=== PATIENT | male | born 1940 | race Caucasian/White ===

== ENCOUNTER 2018-03-07 04:00 | Inpatient (IN) ==
[2018-03-06 11:43] LABS: Basophils # 0.1 10*3/uL (0.0-0.2); Basophils % 0.8 % (0.0-0.8); Eosinophils # 0.3 10*3/uL (0.0-0.87); Eosinophils % 3.5 % (0.00-10.9); Hematocrit 43.9 VOL% (42.0-52.0); Immature Granulocytes % 0.4 %; Immature Granulocytes Absolute 0.03 #; Lymphocytes # 1.5 10*3/uL (1.4-4.0); Lymphocytes % 18.2 % (21.2-54.2); Mean Corpuscular HGB Conc 34.2 GM/DL (32-36); Mean Corpuscular Hemoglobin 31 PG (27-34); Mean Corpuscular Volume 90.3 FL (87-102); Mean Platelet Volume 9.6 FL (9.6-12.0); Monocytes # 0.9 10*3/uL (0.11-0.8); Monocytes % 10.3 % (1.7-12.7); Neutrophils # 5.6 10*3/uL (1.4-7.4); Neutrophils % 66.8 % (38.7-73.9); Platelet Count 221 T/CUMM (130-400); Red Blood Count 4.86 MC/CUMM (3.8-5.5); Red Cell Distribution Width 13.6 % (9.3-17.3); White Blood Count 8.4 T/CUMM (4-12)
[2018-03-06 11:50] LABS: PT Patient Result 10.5 SECS; Partial Thromboplastin Time 26.1 SECS (0-40)
[2018-03-06 12:19] LABS: Osmolality,Calculated 284.1 MOS/KG (273-304); Potassium 4.3 MMOL/L (3.5-5.1)
[2018-03-06 13:24] LABS: Apearance,Urine CLEAR (Clear); Bilirubin,Urine Negative (Negative); Blood, Urine Negative (Negative); Glucose,Urine (UA) Negative (Negative); Ketones,Urine Negative (Negative); Nitrite,Urine Negative (Negative); Protein,Urine Negative; Urine Color Straw (Yellow); Urine Specific Gravity 1.009 (1.001-1.035); Urine Urobilinogen < 2.0 EU/DL (0.2-1.0)
[2018-03-07] MEDS ORDERED: VANCOMYCIN 1,000 MG VIAL ONE (05:27)
[2018-03-07] MEDS ORDERED: PAPAVERINE 60 MG/2 ML VIAL ONE (05:27)
[2018-03-07] MEDS ORDERED: TISSUE ADHESIVE 1 EACH APPLICATOR TOP ONE (05:27)
[2018-03-07] MEDS ORDERED: FAMOTIDINE 20 MG TABLET PO ONE (05:30)
[2018-03-07] MEDS ORDERED: DIAZEPAM 5 MG TABLET PO ONE ×2 (05:30→06:30)
[2018-03-07] MEDS ORDERED: CEFUROXIME INJ 1,500 MG in SYRINGE 1 EACH IV ONE (06:13)
[2018-03-07] MEDS ORDERED: DIAZEPAM 5 MG TABLET ONE (06:14)
[2018-03-07] MEDS ORDERED: FAMOTIDINE 20 MG TABLET ONE (06:14)
[2018-03-07] MEDS ORDERED: SODIUM CHLORIDE 0.9% 1,000 ML IV PRN (06:30)
[2018-03-07] MEDS ORDERED: CEFUROXIME 1,500 MG VIAL ONE (06:38)
[2018-03-07] MEDS ORDERED: TRANEXAMIC ACID 1,000 MG/10 ML VIAL ONE (06:43)
[2018-03-07 07:42] LABS: ABG Base Excess -2.1 MMOL/L (-2.5-2.5); ABG HCO3 22.7 MMOL/L (20-26); ABG Oxygen Saturation 99.3 % (95-100); ABG PCO2 39.2 MM HG (35-48); ABG PH 7.381 (7.35-7.45); ABG PO2 385.1 MM HG (80-95); ABG TCO2 23.9 MMOL/L (23-27); Glucose Heart Surgery 101 MG/DL (74-106); Hemoglobin Heart Surgery 13.7 G/DL (14.0-18.0); Ionized Calcium Arterial 1.14 MMOL/L (1.21-1.46); PCO2 Patient Temp Arterial 39.2 MMHG; PH Patient Temp Arterial 7.381; PO2 Patient Temp Arterial 385.1 MM HG; Patient Temperature 37 CELCIUS; Potassium Heart/CVR 3.7 MMOL/L (3.5-5.1); Sodium Heart/CVR 139 MMOL/L (135-145)
[2018-03-07 08:15] LABS: Apearance,Urine CLEAR (Clear); Bilirubin,Urine Negative (Negative); Blood, Urine Negative (Negative); Glucose,Urine (UA) Negative (Negative); Ketones,Urine Negative (Negative); Mucus,Urine Occasional /LPF (Occasional); Nitrite,Urine Negative (Negative); Protein,Urine Negative; RBC,Urine 1 /HPF (0-4); Urine Color Yellow (Yellow); Urine Specific Gravity 1.017 (1.001-1.035); Urine Urobilinogen < 2.0 EU/DL (0.2-1.0); WBC,Urine <1 /HPF (0-6)
[2018-03-07] MEDS ORDERED: HEPARIN/NACL 0.9% 2 UNITS/ML 500 ML IV ONE (08:55)
[2018-03-07] MEDS ORDERED: MIDAZOLAM 10 MG/2 ML VIAL ONE (08:55)
[2018-03-07] MEDS ORDERED: NITROGLYCERIN DRIP 50 MG/250 ML BOTTLE IV ONE (08:56)
[2018-03-07] MEDS ORDERED: LACTATED RINGERS 1,000 ML IV ONE (08:56)
[2018-03-07] MEDS ORDERED: ETOMIDATE 40 MG/20 ML VIAL IV ONE (08:56)
[2018-03-07] MEDS ORDERED: VECURONIUM 10 MG VIAL IV ONE (08:56)
[2018-03-07] MEDS ORDERED: PHENYLEPHRINE 10 MG/1 ML VIAL IV ONE (08:56)
[2018-03-07] MEDS ORDERED: SODIUM CHLORIDE 0.9% 1,000 ML IV ONE (08:56)
[2018-03-07] MEDS ORDERED: SODIUM CHLORIDE 0.9% 500 ML IV ONE (08:56)
[2018-03-07 09:07] LABS: Hematocrit Heart Surgery 33.4 PERCENT (42-52); Hemoglobin Heart Surgery 10.8 G/DL (14.0-18.0); PCO2 Patient Temp Venous 35.3 MM HG; PH Patient Temp Venous 7.447; PO2 Patient Temp Venous 45.9 MM HG; Potassium Heart/CVR 4.7 MMOL/L (3.5-5.1); VBG Base Excess 0.7 MEQ/L (0-4); VBG HCO3 24.8 MEQ/L (24-28); VBG Oxygen Saturation 84.9 %; VBG PCO2 35.3 MMHG (41-51); VBG PH 7.447; VBG PO2 45.9 MMHG (17-40)
[2018-03-07 09:34] LABS: Hemoglobin Heart Surgery 10.9 G/DL (14.0-18.0); PCO2 Patient Temp Venous 30.5 MM HG; PH Patient Temp Venous 7.488; PO2 Patient Temp Venous 47.1 MM HG; Potassium Heart/CVR 5.3 MMOL/L (3.5-5.1); VBG Base Excess -0.2 MEQ/L (0-4); VBG HCO3 22.9 MEQ/L (24-28); VBG Oxygen Saturation 86.1 %; VBG PCO2 31.9 MMHG (41-51); VBG PH 7.473; VBG PO2 50.5 MMHG (17-40)
[2018-03-07] MEDS ORDERED: ALBUMIN 5% 12.5 GM/250 ML VIAL IV ONE (09:42)
[2018-03-07] MEDS ORDERED: CALCIUM CHLORIDE 1,000 MG/10 ML SYRINGE IV ONE (09:44)
[2018-03-07] MEDS ORDERED: SODIUM BICARBONATE 50 MEQ/50 ML SYRINGE IV ONE ×2 (09:44→10:14)
[2018-03-07] MEDS ORDERED: ALBUMIN 25% 25 GM/100 ML VIAL IV ONE (10:14)
[2018-03-07] MEDS ORDERED: DEXTROSE 5% KCL 20 MEQ 20 MEQ/1,000 ML BAG IV ONE (10:14)
[2018-03-07] MEDS ORDERED: HEPARIN 10,000 UNIT/10 ML VIAL ONE (10:15)
[2018-03-07] MEDS ORDERED: MAGNESIUM SULFATE 1 GM/2 ML VIAL ONE (10:15)
[2018-03-07] MEDS ORDERED: PROTAMINE SULFATE 50 MG/5 ML VIAL IV ONE (10:15)
[2018-03-07] MEDS ORDERED: FUROSEMIDE 20 MG/2 ML VIAL ONE (10:15)
[2018-03-07] MEDS ORDERED: PROTAMINE SULFATE 250 MG/25 ML VIAL IV ONE (10:15)
[2018-03-07] MEDS ORDERED: methylPREDNISolone SOD SUC 1,000 MG/8 ML VIAL ONE (10:15)
[2018-03-07] MEDS ORDERED: MANNITOL 12.5 GM/50 ML VIAL IV ONE (10:15)
[2018-03-07] MEDS ORDERED: THROMBIN TOPICAL (RECOMBINANT) 5,000 UNIT VIAL TOP ONE (10:23)
[2018-03-07 10:27] LABS: ABG Base Excess -1.9 MMOL/L (-2.5-2.5); ABG HCO3 22.7 MMOL/L (20-26); ABG Oxygen Saturation 98.7 % (95-100); ABG PCO2 37.9 MM HG (35-48); ABG PH 7.395 (7.35-7.45); ABG PO2 249.6 MM HG (80-95); ABG TCO2 23.9 MMOL/L (23-27); Glucose Heart Surgery 187 MG/DL (74-106); Ionized Calcium Arterial 1.19 MMOL/L (1.21-1.46); PCO2 Patient Temp Arterial 37.9 MMHG; PH Patient Temp Arterial 7.395; PO2 Patient Temp Arterial 249.6 MM HG; Patient Temperature 37 CELCIUS; Potassium Heart/CVR 4.2 MMOL/L (3.5-5.1); Sodium Heart/CVR 133 MMOL/L (135-145)
[2018-03-07] MEDS ORDERED: EPINEPHrine 1 MG/ML VIAL ONE ×2 (10:52→11:49)
[2018-03-07] MEDS ORDERED: MAGNESIUM SULF RIDER 2 GM in PREMIX 1 EACH IV PRN (11:16)
[2018-03-07] MEDS ORDERED: DEXTROSE 50% 25 GM/50 ML VIAL IV PRN ×2 (11:16)
[2018-03-07] MEDS ORDERED: SODIUM CHLORIDE 0.9% 250 ML IV PRN (11:16)
[2018-03-07] MEDS ORDERED: MIDAZOLAM 2 MG/2 ML VIAL IV PRN (11:16)
[2018-03-07] MEDS ORDERED: ACETAMINOPHEN 650 MG SUPP RECTAL PRN (11:16)
[2018-03-07] MEDS ORDERED: ONDANSETRON 4 MG/2 ML VIAL IV PRN (11:16)
[2018-03-07] MEDS ORDERED: MAGNESIUM SULF RIDER 4 GM in PREMIX 1 EACH IV PRN (11:16)
[2018-03-07] MEDS ORDERED: INSULIN REGULAR 100 UNIT/ML IV PRN (11:16)
[2018-03-07] MEDS ORDERED: CHLORHEXIDINE 4% SOLN 118 ML BOTTLE TOP PRN (11:16)
[2018-03-07] MEDS ORDERED: CALCIUM CHLORIDE 1,000 MG/10 ML SYRINGE IV PRN (11:16)
[2018-03-07] MEDS ORDERED: INSULIN REGULAR DRIP 100 ML IV SCH (11:30)
[2018-03-07 11:46] LABS: ABG Base Excess -3.2 MMOL/L (-2.5-2.5); ABG HCO3 21.5 MMOL/L (20-26); ABG Oxygen Saturation 97.6 % (95-100); ABG PCO2 37.3 MM HG (35-48); ABG PH 7.378 (7.35-7.45); ABG PO2 111.7 MM HG (80-95); ABG TCO2 22.6 MMOL/L (23-27); Glucose Heart Surgery 158 MG/DL (74-106); Hemoglobin Heart Surgery 12.9 G/DL (14.0-18.0); Potassium Heart/CVR 3.3 MMOL/L (3.5-5.1)
[2018-03-07 11:47] LABS: Basophils # 0.1 10*3/uL (0.0-0.2); Basophils % 0.5 % (0.0-0.8); Eosinophils # 0.2 10*3/uL (0.0-0.87); Eosinophils % 0.9 % (0.00-10.9); Hemoglobin 12.5 GM/DL (14.0-18.0); Immature Granulocytes % 0.5 %; Immature Granulocytes Absolute 0.09 #; Lymphocytes # 1.8 10*3/uL (1.4-4.0); Lymphocytes % 11.2 % (21.2-54.2); Mean Corpuscular HGB Conc 33.8 GM/DL (32-36); Mean Corpuscular Hemoglobin 31 PG (27-34); Mean Corpuscular Volume 91.6 FL (87-102); Mean Platelet Volume 9.7 FL (9.6-12.0); Monocytes # 0.7 10*3/uL (0.11-0.8); Monocytes % 4.5 % (1.7-12.7); Neutrophils # 13.5 10*3/uL (1.4-7.4); Neutrophils % 82.4 % (38.7-73.9); Platelet Count 203 T/CUMM (130-400); Red Blood Count 4.04 MC/CUMM (3.8-5.5); Red Cell Distribution Width 13.6 % (9.3-17.3); White Blood Count 16.4 T/CUMM (4-12)
[2018-03-07] MEDS ORDERED: CALCIUM CHLORIDE 1,000 MG/10 ML VIAL IV ONE (11:49)
[2018-03-07] MEDS ORDERED: SEVOFLURANE 1 UNIT/15 MINUTE INH ONE (11:49)
[2018-03-07 11:57] LABS: INR 1.1; Partial Thromboplastin Time 31.1 SECS (0-40)
[2018-03-07 12:12] LABS: Blood Urea Nitrogen 19 MG/DL (7-18); Calcium 7.9 MG/DL (8.5-10.1); Glucose 154 MG/DL (74-106); Osmolality,Calculated 287.1 MOS/KG (273-304); Potassium 3.6 MMOL/L (3.5-5.1); Sodium 142 MMOL/L (136-145)
[2018-03-07] MEDS ORDERED: LACTATED RINGERS 500 ML IV ONE ×2 (12:23→17:11)
[2018-03-07] MEDS: SODIUM CHLORIDE 0.45% 1,000 ML IV SCH ×2 (12:24→12:25)
[2018-03-07] MEDS: POTASSIUM CHLORIDE RIDER 20 MEQ in PREMIX 1 EACH IV PRN ×3 (12:33→16:19)
[2018-03-07] MEDS ORDERED: CALCIUM GLUCONATE 1,000 MG in SODIUM CHLORIDE 0.9% 100 ML IV ONE (13:30)
[2018-03-07] MEDS: MORPHINE 4 MG/1 ML VIAL IV PRN ×2 (13:59→18:51)
[2018-03-07] MEDS: ALBUMIN 5% 12.5 GM in PREMIX 1 EACH IV PRN ×4 (14:00→21:18)
[2018-03-07 16:07] LABS: ABG Base Excess -1.7 MMOL/L (-2.5-2.5); ABG HCO3 23.2 MMOL/L (20-26); ABG Oxygen Saturation 97.9 % (95-100); ABG PCO2 39.6 MM HG (35-48); ABG PH 7.385 (7.35-7.45); ABG PO2 112.2 MM HG (80-95); ABG TCO2 24.4 MMOL/L (23-27); Glucose Heart Surgery 149 MG/DL (74-106); Hemoglobin Heart Surgery 13.2 G/DL (14.0-18.0); Potassium Heart/CVR 4.3 MMOL/L (3.5-5.1)
[2018-03-07] MEDS: MORPHINE 10 MG/1 ML VIAL IV PRN ×3 (16:35→23:33)
[2018-03-07] MEDS ORDERED: ASPIRIN 325 MG TABLET PO ONE (17:23)
[2018-03-07] MEDS: CEFUROXIME INJ 1,500 MG in SYRINGE 1 EACH IV SCH (18:43)
[2018-03-07] MEDS: INSULIN REGULAR 100 UNIT/ML SUBCUT SCH (19:49)
[2018-03-07] MEDS: CHLORHEXIDINE 0.12% ORAL RINSE 60 ML BOTTLE SWISH/SPIT SCH (21:06)
[2018-03-08] MEDS: INSULIN REGULAR 100 UNIT/ML SUBCUT SCH ×7 (00:23→23:47)
[2018-03-08] MEDS: SODIUM CHLORIDE 0.45% 1,000 ML IV SCH ×2 (01:26→08:41)
[2018-03-08] MEDS: MORPHINE 10 MG/1 ML VIAL IV PRN (01:34)
[2018-03-08 04:46] LABS: Basophils % 0.1 % (0.0-0.8); Hematocrit 31.7 VOL% (42.0-52.0); Hemoglobin 11.1 GM/DL (14.0-18.0); Immature Granulocytes % 0.7 %; Immature Granulocytes Absolute 0.12 #; Lymphocytes # 0.6 10*3/uL (1.4-4.0); Lymphocytes % 3.2 % (21.2-54.2); Mean Corpuscular Hemoglobin 31 PG (27-34); Mean Corpuscular Volume 89.8 FL (87-102); Monocytes # 0.9 10*3/uL (0.11-0.8); Monocytes % 5.2 % (1.7-12.7); Neutrophils % 90.8 % (38.7-73.9); Platelet Count 169 T/CUMM (130-400); Red Blood Count 3.53 MC/CUMM (3.8-5.5); Red Cell Distribution Width 14.1 % (9.3-17.3); White Blood Count 17.6 T/CUMM (4-12)
[2018-03-08 05:03] LABS: Calcium 8.1 MG/DL (8.5-10.1); Osmolality,Calculated 284.4 MOS/KG (273-304); Potassium 4.4 MMOL/L (3.5-5.1)
[2018-03-08] MEDS: POTASSIUM CHLORIDE RIDER 20 MEQ in PREMIX 1 EACH IV PRN (05:43)
[2018-03-08 07:08] LABS: Band Neutrophils 3 % (0-10); Lymphocytes 4 % (20-55); Platelet Estimate Normal; Segmented Neutrophils 86 % (50-85); Total Cells Counted 100
[2018-03-08] MEDS ORDERED: MAGNESIUM SULF RIDER 4 GM in PREMIX 1 EACH IV PRN (07:15)
[2018-03-08] MEDS ORDERED: MAGNESIUM SULF RIDER 2 GM in PREMIX 1 EACH IV PRN (07:15)
[2018-03-08] MEDS: CEFUROXIME INJ 1,500 MG in SYRINGE 1 EACH IV SCH ×2 (07:16→18:43)
[2018-03-08] MEDS: METOPROLOL TARTRATE 25 MG TABLET PO SCH ×2 (08:48→21:48)
[2018-03-08] MEDS: ASPIRIN EC 325 MG TABLET PO SCH (08:49)
[2018-03-08] MEDS: CHLORHEXIDINE 0.12% ORAL RINSE 60 ML BOTTLE SWISH/SPIT SCH ×2 (08:49→21:48)
[2018-03-08] MEDS: CLOPIDOGREL 75 MG TABLET PO SCH (08:49)
[2018-03-08] MEDS: FUROSEMIDE 40 MG TABLET PO SCH (08:49)
[2018-03-08] MEDS: ALBUMIN 5% 12.5 GM in PREMIX 1 EACH IV PRN ×2 (08:49→09:20)
[2018-03-08] MEDS: PANTOPRAZOLE 40 MG VIAL IV SCH (10:51)
[2018-03-08] MEDS: oxyCODONE/ACETAMINOPHEN 5-325 MG TABLET PO PRN ×3 (12:25→20:30)
[2018-03-08] MEDS: ATORVASTATIN 40 MG TABLET PO SCH (21:48)
[2018-03-09] MEDS: INSULIN REGULAR 100 UNIT/ML SUBCUT SCH ×6 (04:00→23:52)
[2018-03-09] MEDS: oxyCODONE/ACETAMINOPHEN 5-325 MG TABLET PO PRN ×2 (06:49→14:29)
[2018-03-09 07:34] LABS: Basophils % 0.1 % (0.0-0.8); Hematocrit 35.2 VOL% (42.0-52.0); Hemoglobin 11.9 GM/DL (14.0-18.0); Immature Granulocytes % 1.2 %; Immature Granulocytes Absolute 0.28 #; Lymphocytes # 0.8 10*3/uL (1.4-4.0); Lymphocytes % 3.1 % (21.2-54.2); Mean Corpuscular HGB Conc 33.8 GM/DL (32-36); Mean Corpuscular Hemoglobin 31 PG (27-34); Mean Corpuscular Volume 91.9 FL (87-102); Mean Platelet Volume 10.5 FL (9.6-12.0); Monocytes # 1.4 10*3/uL (0.11-0.8); Monocytes % 5.8 % (1.7-12.7); Neutrophils # 21.4 10*3/uL (1.4-7.4); Neutrophils % 89.8 % (38.7-73.9); Platelet Count 213 T/CUMM (130-400); Red Blood Count 3.83 MC/CUMM (3.8-5.5); Red Cell Distribution Width 14.5 % (9.3-17.3); White Blood Count 23.9 T/CUMM (4-12)
[2018-03-09 07:56] LABS: Calcium 9.1 MG/DL (8.5-10.1); Osmolality,Calculated 288.4 MOS/KG (273-304); Potassium 4.2 MMOL/L (3.5-5.1)
[2018-03-09 08:25] LABS: Band Neutrophils 3 % (0-10); Lymphocytes 4 % (20-55); Segmented Neutrophils 89 % (50-85); Total Cells Counted 100
[2018-03-09 08:26] LABS: Microcytosis Slight; Platelet Estimate Normal
[2018-03-09] MEDS: CLOPIDOGREL 75 MG TABLET PO SCH (08:34)
[2018-03-09] MEDS: METOPROLOL TARTRATE 25 MG TABLET PO SCH ×2 (08:34→21:00)
[2018-03-09] MEDS: ASPIRIN EC 325 MG TABLET PO SCH (08:35)
[2018-03-09] MEDS: PANTOPRAZOLE 40 MG VIAL IV SCH (08:35)
[2018-03-09] MEDS: FUROSEMIDE 40 MG TABLET PO SCH (08:35)
[2018-03-09] MEDS: CHLORHEXIDINE 0.12% ORAL RINSE 60 ML BOTTLE SWISH/SPIT SCH ×2 (12:44→21:01)
[2018-03-09] MEDS: SIMETHICONE CHEW 125 MG TABLET PO PRN (16:01)
[2018-03-09] MEDS: DOCUSATE SODIUM 100 MG CAPSULE PO PRN (16:01)
[2018-03-09] MEDS: BISACODYL 5 MG TABLET PO PRN (16:02)
[2018-03-09] MEDS: traMADol 50 MG TABLET PO PRN (18:30)
[2018-03-09] MEDS: ATORVASTATIN 40 MG TABLET PO SCH (21:00)
[2018-03-10] MEDS: INSULIN REGULAR 100 UNIT/ML SUBCUT SCH ×5 (03:12→20:26)
[2018-03-10 06:23] LABS: Basophils % 0.1 % (0.0-0.8); Hematocrit 34.4 VOL% (42.0-52.0); Hemoglobin 11.6 GM/DL (14.0-18.0); Immature Granulocytes % 0.9 %; Immature Granulocytes Absolute 0.17 #; Lymphocytes # 1.4 10*3/uL (1.4-4.0); Lymphocytes % 7.6 % (21.2-54.2); Mean Corpuscular HGB Conc 33.7 GM/DL (32-36); Mean Corpuscular Hemoglobin 31 PG (27-34); Mean Corpuscular Volume 92.5 FL (87-102); Mean Platelet Volume 10.2 FL (9.6-12.0); Monocytes # 1.6 10*3/uL (0.11-0.8); Monocytes % 8.6 % (1.7-12.7); Neutrophils # 15.4 10*3/uL (1.4-7.4); Neutrophils % 82.8 % (38.7-73.9); Platelet Count 181 T/CUMM (130-400); Red Blood Count 3.72 MC/CUMM (3.8-5.5); Red Cell Distribution Width 14.3 % (9.3-17.3); White Blood Count 18.5 T/CUMM (4-12)
[2018-03-10 06:44] LABS: Calcium 8.4 MG/DL (8.5-10.1); Osmolality,Calculated 288.3 MOS/KG (273-304); Potassium 3.8 MMOL/L (3.5-5.1)
[2018-03-10] MEDS: SIMETHICONE CHEW 125 MG TABLET PO PRN (09:14)
[2018-03-10] MEDS: FUROSEMIDE 40 MG TABLET PO SCH (09:15)
[2018-03-10] MEDS: ASPIRIN EC 325 MG TABLET PO SCH (09:15)
[2018-03-10] MEDS: CLOPIDOGREL 75 MG TABLET PO SCH (09:15)
[2018-03-10] MEDS: traMADol 50 MG TABLET PO PRN ×3 (09:16→21:49)
[2018-03-10] MEDS: PANTOPRAZOLE 40 MG VIAL IV SCH (09:17)
[2018-03-10] MEDS: METOPROLOL TARTRATE 25 MG TABLET PO SCH ×2 (09:59→21:49)
[2018-03-10] MEDS: CHLORHEXIDINE 0.12% ORAL RINSE 60 ML BOTTLE SWISH/SPIT SCH ×2 (09:59→22:00)
[2018-03-10] MEDS: oxyCODONE/ACETAMINOPHEN 5-325 MG TABLET PO PRN (15:13)
[2018-03-10] MEDS: ATORVASTATIN 40 MG TABLET PO SCH (21:49)
[2018-03-10] MEDS: BISACODYL 5 MG TABLET PO PRN (21:49)
[2018-03-10] MEDS: DOCUSATE SODIUM 100 MG CAPSULE PO PRN (21:49)
[2018-03-11 05:22] LABS: Basophils % 0.2 % (0.0-0.8); Eosinophils # 0.1 10*3/uL (0.0-0.87); Eosinophils % 0.6 % (0.00-10.9); Hematocrit 37.7 VOL% (42.0-52.0); Hemoglobin 12.6 GM/DL (14.0-18.0); Immature Granulocytes % 0.9 %; Immature Granulocytes Absolute 0.14 #; Lymphocytes # 1.9 10*3/uL (1.4-4.0); Lymphocytes % 12.3 % (21.2-54.2); Mean Corpuscular HGB Conc 33.4 GM/DL (32-36); Mean Corpuscular Hemoglobin 31 PG (27-34); Mean Corpuscular Volume 92.6 FL (87-102); Mean Platelet Volume 10.4 FL (9.6-12.0); Monocytes # 1.6 10*3/uL (0.11-0.8); Monocytes % 10.7 % (1.7-12.7); Neutrophils # 11.5 10*3/uL (1.4-7.4); Neutrophils % 75.3 % (38.7-73.9); Platelet Count 220 T/CUMM (130-400); Red Blood Count 4.07 MC/CUMM (3.8-5.5); Red Cell Distribution Width 14.3 % (9.3-17.3); White Blood Count 15.3 T/CUMM (4-12)
[2018-03-11 05:52] LABS: Calcium 8.9 MG/DL (8.5-10.1); Osmolality,Calculated 288.4 MOS/KG (273-304); Potassium 3.5 MMOL/L (3.5-5.1)
[2018-03-11] MEDS ORDERED: POTASSIUM CHLORIDE RIDER 10 MEQ in PREMIX 1 EACH IV PRN (06:45)
[2018-03-11] MEDS: POTASSIUM CHLORIDE RIDER 10 MEQ in PREMIX 1 EACH IV PRN ×3 (06:49→17:20)
[2018-03-11] MEDS: METOPROLOL TARTRATE 25 MG TABLET PO SCH ×2 (09:56→21:38)
[2018-03-11] MEDS: CLOPIDOGREL 75 MG TABLET PO SCH (09:56)
[2018-03-11] MEDS: ASPIRIN EC 325 MG TABLET PO SCH (09:56)
[2018-03-11] MEDS: oxyCODONE/ACETAMINOPHEN 5-325 MG TABLET PO PRN (09:56)
[2018-03-11] MEDS: FUROSEMIDE 40 MG TABLET PO SCH (09:56)
[2018-03-11] MEDS: CHLORHEXIDINE 0.12% ORAL RINSE 60 ML BOTTLE SWISH/SPIT SCH ×2 (09:56→21:34)
[2018-03-11] MEDS: PANTOPRAZOLE 40 MG VIAL IV SCH (09:57)
[2018-03-11] MEDS: traMADol 50 MG TABLET PO PRN (20:39)
[2018-03-11] MEDS: ATORVASTATIN 40 MG TABLET PO SCH (21:33)
[2018-03-12] MEDS: ASPIRIN EC 325 MG TABLET PO SCH (10:13)
[2018-03-12] MEDS: CLOPIDOGREL 75 MG TABLET PO SCH (10:13)
[2018-03-12] MEDS: oxyCODONE/ACETAMINOPHEN 5-325 MG TABLET PO PRN (10:13)
[2018-03-12] MEDS: FUROSEMIDE 40 MG TABLET PO SCH (10:14)
[2018-03-12] MEDS: CHLORHEXIDINE 0.12% ORAL RINSE 60 ML BOTTLE SWISH/SPIT SCH (10:16)
[2018-03-12] MEDS: METOPROLOL TARTRATE 25 MG TABLET PO SCH (10:17)
[2018-03-12] MEDS: PANTOPRAZOLE 40 MG VIAL IV SCH (10:17)
[2018-03-12 12:04] VITALS: BP 122/67
== END 2018-03-12 13:08 | disposition home health service (06) | DRG 236 ==
LOC: N.SDSINP 05:37 → N.CVR 07:26 → N.ICU 03-08 10:52 → N.TELES 03-08 14:27
PROVIDERS: ADMIT Thoracic Surgery (Cardiothoracic Vascular Surgery); ATTEND Thoracic Surgery (Cardiothoracic Vascular Surgery)

== ENCOUNTER 2022-05-31 09:42 | Observation (INO) ==
[2022-05-31 10:12] LABS: Basophils % 0.6 % (0.0-0.8); Eosinophils # 0.2 10*3/uL (0.0-0.87); Eosinophils % 3.6 % (0.00-10.9); Hematocrit 42.9 VOL% (42.0-52.0); Hemoglobin 13.7 GM/DL (14.0-18.0); Immature Granulocytes % 0.2 %; Immature Granulocytes Absolute 0.01 #; Lymphocytes # 1.2 10*3/uL (1.4-4.0); Lymphocytes % 19.3 % (21.2-54.2); Mean Corpuscular HGB Conc 31.9 GM/DL (32-36); Mean Corpuscular Volume 94.9 FL (87-102); Mean Platelet Volume 9.9 FL (9.6-12.0); Monocytes # 0.4 10*3/uL (0.11-0.8); Monocytes % 6.7 % (1.7-12.7); Neutrophils % 69.6 % (38.7-73.9); Platelet Count 202 T/CUMM (130-400); Red Blood Count 4.52 MC/CUMM (3.8-5.5); Red Cell Distribution Width 14.8 % (9.3-17.3); White Blood Count 6.4 T/CUMM (4-12)
[2022-05-31 10:23] LABS: INR 1.1; PT Patient Result 11.6 SECS (10.1-12.1); Partial Thromboplastin Time 30.2 SECS (23.7-32.9)
[2022-05-31 10:39] LABS: Albumin 3.6 G/DL (3.4-5.0); Bilirubin,Total 0.5 MG/DL (0.20-1.00); Calcium 9.7 MG/DL (8.5-10.1); Osmolality,Calculated 286.1 MOS/KG (273-304); Potassium 3.6 MMOL/L (3.5-5.1); Total Protein 7.3 G/DL (6.4-8.2)
[2022-05-31] MEDS ORDERED: DEXTROSE 10% 250 ML BAG IV PRN (13:17)
[2022-05-31] MEDS ORDERED: GLUCAGON 1 MG VIAL IM PRN (13:17)
[2022-05-31] MEDS ORDERED: ONDANSETRON 4 MG/2 ML VIAL IV PRN (13:23)
[2022-05-31] MEDS ORDERED: ACETAMINOPHEN 325 MG TABLET PO PRN (13:23)
[2022-05-31] MEDS ORDERED: DOCUSATE SODIUM 100 MG CAPSULE PO PRN (13:23)
[2022-05-31] MEDS ORDERED: ENOXAPARIN 40 MG/0.4 ML SYRINGE SUBCUT SCH (14:00)
[2022-05-31] MEDS ORDERED: ATORVASTATIN 80 MG TABLET PO SCH (21:00)
[2022-05-31] MEDS: APIXABAN 2.5 MG TABLET PO SCH (21:32)
[2022-06-01 05:41] LABS: Basophils # 0.1 10*3/uL (0.0-0.2); Basophils % 0.8 % (0.0-0.8); Eosinophils # 0.3 10*3/uL (0.0-0.87); Eosinophils % 3.8 % (0.00-10.9); Hematocrit 42.3 VOL% (42.0-52.0); Hemoglobin 14.1 GM/DL (14.0-18.0); Immature Granulocytes % 0.3 %; Immature Granulocytes Absolute 0.02 #; Lymphocytes # 1.3 10*3/uL (1.4-4.0); Lymphocytes % 17.2 % (21.2-54.2); Mean Corpuscular HGB Conc 33.3 GM/DL (32-36); Mean Corpuscular Volume 91.4 FL (87-102); Monocytes # 0.8 10*3/uL (0.11-0.8); Monocytes % 9.9 % (1.7-12.7); Platelet Count 202 T/CUMM (130-400); Red Blood Count 4.63 MC/CUMM (3.8-5.5); Red Cell Distribution Width 14.6 % (9.3-17.3); White Blood Count 7.8 T/CUMM (4-12)
[2022-06-01 06:01] LABS: Calcium 8.8 MG/DL (8.5-10.1); Potassium 3.8 MMOL/L (3.5-5.1); Risk Ratio 5.04; VLDL Cholesterol 29.6 MG/DL
[2022-06-01 08:30] VITALS: BP 150/84
[2022-06-01] MEDS ORDERED: METOPROLOL TARTRATE 25 MG TABLET PO SCH (09:00)
[2022-06-01] MEDS ORDERED: CLOPIDOGREL 75 MG TABLET PO SCH (09:00)
[2022-06-01] MEDS ORDERED: ASPIRIN EC 81 MG TABLET PO SCH (09:00)
[2022-06-01] MEDS ORDERED: CHOLECALCIFEROL 1,000 UNIT TABLET PO SCH (09:00)
[2022-06-01] MEDS ORDERED: ROSUVASTATIN 20 MG TABLET PO SCH (09:00)
[2022-06-01] MEDS ORDERED: FOLIC ACID 1 MG TABLET PO SCH (09:00)
[2022-06-01] MEDS ORDERED: ISOSORBIDE MONONITRATE 60 MG TABLET PO SCH (09:00)
[2022-06-01] MEDS: APIXABAN 2.5 MG TABLET PO SCH (09:43)
== END 2022-06-01 14:09 | disposition home or self-care (01) ==
LOC: N.EDINP 09:42 → N.ED 09:42 → SUATTDRO 14:27 → N.TELEN 16:43
PROVIDERS: ADMIT Hospitalist; ATTEND Family Medicine